=== PATIENT | male | born 1985 | race Caucasian/White ===

== ENCOUNTER 2023-11-11 15:03 | Emergency (ER) | payer OTHER ==
[2023-11-11 16:01] VITALS: BP 117/88; PULSE 86; RESP 16; TEMP 98.9; BMI 15.2
[2023-11-11] MEDS ORDERED: ACETAMINOPHEN 325 MG TABLET (FP) ONE (16:36)
[2023-11-11] MEDS: ACETAMINOPHEN 325 MG TABLET (FP) PO ONE (16:41)
[2023-11-11 16:49] LABS: HEMATOCRIT 47.9 % (35.4-49); HEMOGLOBIN 16.2 G/dL (11.7-16.9); MCH 30.6 pg (25.7-33.7); MCHC 33.9 g/dl (32.0-35.9); MEAN CELL VOLUME 90.4 fl (80-96); MEAN PLT VOLUME 9.6 fl (7.5-11.1); PLATELET COUNT 125.1 10^3/uL (134-434); RDW 13.4 % (11.9-15.9); WHITE BLOOD COUNT 6.9 10^3/uL (4.0-10.8)
[2023-11-11 16:55] LABS: PLATELET ESTIMATE SLT DECREASE
[2023-11-11 17:08] LABS: ALBUMIN 4.9 g/dl (3.4-5.0); BILIRUBIN,TOTAL 0.7 mg/dl (0.2-1); POTASSIUM 4.5 mmol/L (3.5-5.1); TOT PROT 7.2 g/dl (6.4-8.2)
== END 2023-11-11 18:50 | disposition home or self-care (01) ==
LOC: FER 15:03
DX: R07.89 Other chest pain (principal); R53.1 Weakness; R06.02 Shortness of breath; R53.83 Other fatigue
CPT/HCPCS: 36415; 71045-TC-FY; 80053; 84484; 85025; 93005; 99285-25